=== PATIENT | female | born 1985 | race Two or more races ===

== ENCOUNTER 2018-10-30 14:44 | Emergency (ER) | payer OTHER ==
[~2018-10-30] VITALS: Ht 157.5 cm; Wt 61.2 kg
[~2018-10-30 14:44] MED LIST: AMBIEN10 MG PO; AMOX1TAB12 PO; BACTROBAN OINT22 GM TP; CLONAZEPAM0.5 MG PO; DEPAKOTE ER500 MG PO; KETO10TA2 PO; NEURONTIN300 MG PO; VALTREX1000 MG PO; XANAX XR2 MG; ZOVIRAX15 GM TP
== END 2018-10-30 18:44 | disposition home or self-care (01) ==
LOC: ER 14:44
DX: J11.1 Influenza due to unidentified influenza virus with other respiratory manifestations (principal); J06.9 Acute upper respiratory infection, unspecified; R30.0 Dysuria

== ENCOUNTER 2020-10-27 07:31 | Emergency (ER) | payer OTHER ==
[~2020-10-27] VITALS: Ht 157.5 cm; Wt 59.0 kg
== END 2020-10-27 13:10 | disposition home or self-care (01) ==
LOC: ER 07:31
DX: N39.0 Urinary tract infection, site not specified (principal); R30.0 Dysuria; B96.29 Other Escherichia coli [E. coli] as the cause of diseases classified elsewhere